=== PATIENT | male | born 1985 | race Asian ===

== ENCOUNTER 2020-07-24 19:57 | Emergency (ER) | payer OTHER ==
[~2020-07-24] VITALS: Ht 172.7 cm; Wt 93.6 kg
--- NOTE | 2020-07-24 20:30 | NUR ---
PT HERE FOR RUQ PAIN. PT HAS BEEN DIAGNOSED WITH GALLSTONES. PT HAS 10/10 PAIN. BP ELEVATED AND PT IS IN OBVIOUS DISTRESS. PT COMPLAINING OF NAUSEA. PT PLACED ON PULSE OX AND BP MONITORING. SPOUSE AT BEDSIDE. CALL LIGHT IN REACH. WAITING FOR PT TO BE EVALUATED BY
[2020-07-24] MEDS ORDERED: MORPHINE SULFATE 4 MG/ML, 1ML ONE (21:19)
[2020-07-24] MEDS ORDERED: ONDANSETRON 2MG/ML, 2ML ONE (21:19)
--- NOTE | 2020-07-24 21:26 | NUR ---
PT MEDICATED FOR PAIN. [facility]A SENT TO LAB. CALL LIGHT IN REACH
[2020-07-24] MEDS ORDERED: ONDANSETRON 2MG/ML, 2ML IVPush ONE (21:30)
[2020-07-24] MEDS ORDERED: MORPHINE SULFATE 4 MG/ML, 1ML IVPush ONE (21:30)
[2020-07-24 21:36] LABS: MICROSCOPIC NOT IND
[2020-07-24 21:47] LABS: BASOPHILS % (AUTO) 0 % (0-1); EOSINOPHILS % (AUTO) 0 % (1-7); LYMPHOCYTES % (AUTO) 16 % (22-44); MEAN CORPUSCULAR HEMOGLOBIN 31.3 pg (27.5-34.5); MEAN CORPUSCULAR HGB CONC 34.4 g/dL (33.2-36.2); MEAN PLATELET VOLUME 8.4 fL (7.4-10.4); MONOCYTES % (AUTO) 6 % (2-9); NEUTROPHILS % (AUTO) 78 % (42-75); PLATELET COUNT 301 x10^3/uL (130-400); RED BLOOD COUNT 4.94 x10^6/uL (4.38-5.82); RED CELL DISTRIBUTION WIDTH 12.7 % (9.4-14.8)
[2020-07-24 21:49] LABS: MD NO
[2020-07-24 21:59] LABS: ALBUMIN 3.8 g/dL (3.4-5.0); ANION GAP 10 mmol/L (5-15); CALCIUM 9.4 mg/dL (8.5-10.1); CHLORIDE 105 mmol/L (98-107)
[2020-07-24 22:03] LABS: ALANINE AMINOTRANSFERASE 65 U/L (12-78); ALKALINE PHOSPHATASE 69 U/L (45-117); BILIRUBIN,TOTAL 0.5 mg/dL (0.2-1.0); CREATININE 1.07 mg/dL (0.7-1.3); TOTAL PROTEIN 8.7 g/dL (6.4-8.2)
--- NOTE | 2020-07-24 22:09 | NUR ---
pt back from us. vss. pts pain improved. pt has no other needs at this time. call light in reach
--- NOTE | 2020-07-24 23:17 | NUR ---
PT RESTING. VSS. MD TO RE EVALUATE AND SEE PT. CALL LIGHT IN REACH
[2020-07-25 00:19] VITALS: BP 149/83
--- NOTE | 2020-07-25 00:19 | NUR ---
Patient given discharge instructions and they have confirmed that they understand the instructions. Patient ambulatory with steady gait.
== END 2020-07-25 00:21 | disposition home or self-care (01) ==
LOC: ED 20:27
DX: K80.20 Calculus of gallbladder without cholecystitis without obstruction (principal); R10.11 Right upper quadrant pain; R11.0 Nausea
CPT/HCPCS: 36415; 76700; 80053; 81003; 83690; 85025; 96374; 96375; 99284; J2270; J2405